=== PATIENT | male | born 1985 | race Caucasian/White ===

== ENCOUNTER 2024-10-23 17:28 | Emergency (ER) | payer BC ==
--- OUTSIDE RECORDS SUMMARY | 2024-10-23 17:32 | XMS REPORT | Continuity of Care Document ---
Author Name Unknown Address [address] [place] [id number] [place], [place] [address] Address [address] [place] [address]. [address] [place] [address] Care Team Providers Care Food Service Helper Name Role Phone Unavailable Unavailable Unavailable
[2024-10-23] MEDS ORDERED: ASPIRIN 81 MG CHEWABLE TABLET ONE (18:05)
[2024-10-23] MEDS ORDERED: ONDANSETRON 4 MG/2 ML VIAL ONE (18:06)
[2024-10-23] MEDS ORDERED: MORPHINE 4 MG/ML SYR ONE (18:07)
[2024-10-23] MEDS ORDERED: HEPARIN 5000 UNIT/ML 1 ML VIAL ONE (18:15)
[2024-10-23] MEDS ORDERED: TENECTEPLASE 50 MG/10 ML VIAL IV ONE (18:15)
[2024-10-23] MEDS ORDERED: CLOPIDOGREL 75 MG TABLET ONE (18:15)
[2024-10-23] MEDS ORDERED: HEPARIN/D5W 25,000 UNIT/500 ML BAG IV ONE (18:16)
[2024-10-23 18:23] LABS: Absolute Eosinophils 0.2 K/uL (0-0.5); Absolute Lymphocytes (CBC) 1.3 K/uL (0.7-4.9); Absolute Monocytes 0.6 K/uL (0.1-1.3); Absolute Neutrophil 7.6 K/uL (1.8-8.0); Basophils % 0.3 % (0-1.3); Eosinophils % 1.6 % (0-4.4); Hematocrit 43.9 % (39.6-49.0); Hemoglobin 15.3 g/dL (13.6-17.9); Lymphocytes % 13.8 % (15.3-44.8); MCHC 34.8 g/dL (32.0-36.0); MCV 92.1 fL (80-100); MPV 8.2 fL (7.6-11.3); Neutrophils % 78.3 % (41.7-73.7); Platelets 182 thou/uL (152-406); RBC Red Blood Cell Count 4.76 M/uL (4.33-5.43); Red Cell Distribution Width 13.2 % (12.1-15.2)
--- NOTE | 2024-10-23 18:30 | ER ---
Nurse's Notes [facility] Name: Arnaldo Serrano Age: 38 yrs Sex: Male : 1985 Arrival Date: 10/23/2024 Time: 17:28 Bed 23 Private MD: Diagnosis: ST elevation (STEMI) myocardial infarction of inferior wall-acute;Chest pain, unspecified;Tobacco abuse counseling;Tobacco use;Type 2 diabetes mellitus with hyperglycemia Presentation: 10/23 17:40 Chief complaint: EMS states: Pt was walking down some stairs, became light headed and jb4 hot. He started having chest pain that was gone upon EMS arrival. While en route to our Contract Dr. Pt became diaphoretic and heart rate dropped into the 40's and chest pain came back. Started an 18g in the LAC and gave approximately 100ml of NS. Laid the pt flat and he felt better. 17:40 Coronavirus screen: At this time, the client does not indicate any symptoms associated jb4 with coronavirus-19. Ebola Screen: No symptoms or risks identified at this time. Initial Sepsis Screen: Does the patient meet any 2 criteria? No. Patient's initial sepsis screen is negative. Does the patient have a suspected source of infection? No. Patient's initial sepsis screen is negative. Risk Assessment: Do you want to hurt yourself or someone else? Patient reports no desire to harm self or others. Onset of symptoms was October 23, 2024. Transition of care: patient was not received from another setting of care. 17:40 Method Of Arrival: EMS: [place] [id number] 17:40 Acuity: JAMIE 2 jb4 Historical: - Allergies: 17:53 Rofampin; jb4 - PMHx: 17:53 None; jb4 - PSHx: 17:53 abdominal; jb4 - Immunization history:: Adult Immunizations up to date. - Infectious Disease History:: Denies. - Social history:: Smoking status: Patient reports the use of cigarette tobacco products, denies chronic smoking, but will smoke occasionally. - Family history:: not pertinent. Screenin:40 [facility] ED Fall Risk Assessment (Adult) History of falling in the last 3 months, jb4 including since admission No falls in past 3 months (0 pts) Confusion or Disorientation No (0 pts) Intoxicated or Sedated No (0 pts) Impaired Gait No (0 pts) Mobility Assist Device Used No (0 pt) Altered Elimination No (0 pt) Score/Fall Risk Level 0 - 2 = Low Risk Oriented to surroundings, Maintained a safe environment. Abuse screen: Denies threats or abuse. Nutritional screening: No deficits noted. Tuberculosis screening: No symptoms or risk factors identified. Assessment: 18:12 Reassessment: Received verbal order for 4mg of zofran IV and 4mg of morphine IV x1 and jb4 300mg of plavix Patient denies pain at this time. 18:27 Reassessment: Administrative approval given by Daya Cao, patient accounts coordinator at [facility]. Accepting physician Aaron Landin. Pt to go to shipyard laborer at [facility]. 18:40 Reassessment: Pt gave verbal consent for to sign papers and for me to update jb4 family and friends at the bedside. 18:40 Reassessment: Report given to ISREAL Becerra. Vital Signs: 17:40 BP 140 / 87; Pulse 73; Resp 16; Temp 98.2(O); Pulse Ox 100% on R/A; Weight 81.65 kg jb4 (R); Height 5 ft. 7 in. (R); 18:23 BP 145 / 94; Pulse 64; Resp 20; Pulse Ox 100% on 2 lpm NC; Weight 95.6 kg (M); jb4 17:40 Body Mass Index 28.19 (95.60 kg, 170.18 cm) jb4 ED Course: 17:33 Patient arrived in ED. bd 17:41 Tim He, ISREAL is Primary Nurse. jb4 17:51 [facility] Pal[facility]-C [facility]. kb 17:51 Tom Beltran MD is Attending Physician. kb 17:53 Tom Beltran MD is Attending Physician. na 17:53 Triage completed. jb4 17:53 Arm band placed on right wrist. jb4 17:53 Patient has correct armband on for positive identification. Bed in low position. Call jb4 light in reach. Side rails up X 1. Provided Education on: plan of care. 18:09 CPK Sent. bc6 18:09 Basic Metabolic Panel Sent. bc6 18:09 CBC with Diff Sent. bc6 18:09 D-Dimer Sent. bc6 18:09 LFT's Sent. bc6 18:09 Magnesium Sent. 6 18:09 NT PRO-BNP Sent. 6 18:09 Troponin HS Sent. 6 18:09 Initial lab(s) drawn, by me, sent to lab. Inserted saline lock: 20 gauge in right bc6 antecubital area, using aseptic technique. Blood collected. Flushed with 10 mL NS. 18:27 XRAY Chest (1 view) In Process Unspecified. EDMS 18:30 Client placed on continuous cardiac and pulse oximetry monitoring. NIBP monitoring jb4 applied. quality assurance monitor final on. Pulse ox on. Pt placed on combo pads. 18:30 One-on-one care X 60 minutes. jb4 18:55 No provider procedures requiring assistance completed. Patient transferred, IV remains ss in place. Administered Medications: 18:03 Drug: NS 0.9% IV 1000 ml IV at 1000 ml once; to be given as a bolus over 60 minutes jb4 {Note: continued EMS bolus.} Route: IV; Rate: 1000 ml; Site: left antecubital; 18:45 Follow up: Response: No adverse reaction; IV Status: Completed infusion; IV Intake: jb4 900ml 18:12 Drug: Aspirin PO Chewable Tablet 324 mg PO once; 81 mg tablets x 4 Route: PO; jb4 18:58 Follow up: Response: No adverse reaction jb4 18:21 Drug: Clopidogrel PO 300 mg PO once Route: PO; jb4 18:59 Follow up: Response: No adverse reaction jb4 18:22 Drug: morphine IVP or IV 4 mg IVP once over 4 mins Route: IVP; Infused Over: 4 mins; jb4 Site: right antecubital; 18:58 Follow up: Response: No adverse reaction; Marked relief of symptoms jb4 18:22 Drug: Ondansetron IVP 4 mg IVP once; over 2 minutes Route: IVP; Site: right antecubital;jb4 18:58 Follow up: Response: No adverse reaction; Marked relief of symptoms jb4 18:30 Drug: Heparin ([place]-Bolus with thrombolytic) - HEParin IVP 60 units/kg IVP once; Max 4000 ap3 units {Co-Signature: jb4 (Tim He RN).} Route: IVP; Site: right antecubital; 18:58 Follow up: Response: No adverse reaction jb4 18:30 Drug: Heparin ([place] Drip) 12 units/kg/[place] - ([place] [address] units, D5W IV 500 ml) IV at ap3 calculated rate Per protocol; Max initial rate 1000 units/hr {Co-Signature: esequiel (Tim He RN).} Route: IV; Rate: calculated rate; Site: right antecubital; 18:58 Follow up: IV Status: Infusion continued upon transfer jb4 18:46 Drug: Tenecteplase IV (Administer 10 ml NS flush BEFORE and AFTER tenecteplase) 45 mg ap3 IV at per protocol once {Co-Signature: esequiel (Tim He RN).} {Note: dose changed due to standing scale weight.} Route: IV; Rate: per protocol; Site: left antecubital; 18:46 Follow up: Response: No adverse reaction; IV Status: Completed infusion jb4 18:57 Not Given (PT transferredd): ns 0.9% 1000 ml IV at 1000 ml once; to be given as a bolus jb4 over 60 minutes 18:58 Not Given (pt transferredd): mg IVP once; dilute with 10 mL 0.9% NaCl; jb4 give over 2 minutes Medication: 18:40 VIS not applicable for this client. jb4 Intake: 18:45 IV: 900ml; Total: 900ml. jb4 Outcome: 18:30 ER care complete, transfer ordered by . na 18:55 Transferred by helicopter to [facility], Transfer form completed. ss X-rays sent w/ patient. 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 jb4 X-rays sent w/ patient. 18:56 Condition: unchanged 18:56 Discharge instructions given to patient, family, friend, Instructed on the need for transfer, Demonstrated understanding of instructions, 18:56 Patient left the ED. ss Signatures: Dispatcher [employer] EDMS Olivia Palencia, DYE RANGE OPERATOR CLOTH-C DYE RANGE OPERATOR CLOTH-Thelma Arce Corey, MD MD cha Blanchard, [place], RN RN ss Tim He, RN RN jb4 Denisha Douglas RN RN ap3 Magaly Kenyon 6 Tim He RN jb4 Corrections: (The following items were deleted from the chart) 17:54 17:53 Allergies: No Known Allergies; [email or web address] jb4 18:20 18:09 THYROID STIMULAT HORMONE+C.LAB.BRZ drawn and sent. bc6 EDMS
--- NOTE | 2024-10-23 18:30 | EDPHYS ---
Physician Documentation [facility] Name: Arnaldo Serrano Age: 38 yrs Sex: Male : 1985 Arrival Date: 10/23/2024 Time: 17:28 Bed 23 Private MD: Tom Melton HPI: 10/23 18:19 This 38 yrs old Male presents to ER via EMS with complaints of chest pain , na syncope. 18:19 The patient or guardian reports chest pain that is located primarily in the substernal na area. Onset: just prior to arrival. The patient presents with dizziness, generalized weakness, lightheadedness. Onset: The symptoms/episode began/occurred just prior to arrival. Modifying factors: The symptoms are alleviated by nothing, the symptoms are aggravated by nothing. Associated signs and symptoms: Pertinent positives: palpitations. The pain does not radiate. Severity of symptoms: At their worst the symptoms were moderate in the emergency department the symptoms are unchanged. Associated signs and symptoms: Pertinent positives: diaphoresis, dizziness, shortness of breath, syncope. The chest pain is described as a heaviness, a pressure. Historical: - Allergies: 17:53 Rofampin; jb4 - PMHx: 17:53 None; jb4 - PSHx: 17:53 abdominal; jb4 - Immunization history:: Adult Immunizations up to date. - Infectious Disease History:: Denies. - Social history:: Smoking status: Patient reports the use of cigarette tobacco products, denies chronic smoking, but will smoke occasionally. - Family history:: not pertinent. ROS: 18:19 Constitutional: Negative for fever, chills, and weight loss, Eyes: Negative for injury, na pain, redness, and discharge, ENT: Negative for injury, pain, and discharge, Neck: Negative for injury, pain, and swelling, Respiratory: Negative for shortness of breath, cough, wheezing, and pleuritic chest pain, Abdomen/GI: Negative for abdominal pain, nausea, vomiting, diarrhea, and constipation, Back: Negative for injury and pain, : Negative for injury, bleeding, discharge, and swelling, MS/Extremity: Negative for injury and deformity, Skin: Negative for injury, rash, and discoloration, Neuro: Negative for headache, weakness, numbness, tingling, and seizure, Psych: Negative for depression, anxiety, suicide ideation, homicidal ideation, and hallucinations, Allergy/Immunology: Negative for hives, rash, and allergies, Endocrine: Negative for neck swelling, polydipsia, polyuria, polyphagia, and marked weight changes, Hematologic/Lymphatic: Negative for swollen nodes, abnormal bleeding, and unusual bruising, 18:19 Cardiovascular: Positive for chest pain, palpitations, Exam: 18:19 Constitutional: This is a well developed, well nourished patient who is awake, alert, na and in no acute distress. Head/Face: Normocephalic, atraumatic. Eyes: Pupils equal round and reactive to light, extra-ocular motions intact. Lids and lashes normal. Conjunctiva and sclera are non-icteric and not injected. Cornea within normal limits. Periorbital areas with no swelling, redness, or edema. ENT: Nares patent. No nasal discharge, no septal abnormalities noted. Tympanic membranes are normal and external auditory canals are clear. Oropharynx with no redness, swelling, or masses, exudates, or evidence of obstruction, uvula midline. Mucous membranes moist. Neck: Trachea midline, no thyromegaly or masses palpated, and no cervical lymphadenopathy. Supple, full range of motion without nuchal rigidity, or vertebral point tenderness. No Meningismus. Chest/axilla: Normal chest wall appearance and motion. Nontender with no deformity. No lesions are appreciated. Cardiovascular: Regular rate and rhythm with a normal S1 and S2. No gallops, murmurs, or rubs. Normal PMI, no JVD. No pulse deficits. Respiratory: Lungs have equal breath sounds bilaterally, clear to auscultation and percussion. No rales, rhonchi or wheezes noted. No increased work of breathing, no retractions or nasal flaring. Abdomen/GI: Soft, non-tender, with normal bowel sounds. No distension or tympany. No guarding or rebound. No evidence of tenderness throughout. Back: No spinal tenderness. No costovertebral tenderness. Full range of motion. Male : Normal genitalia with no discharge or lesions. Skin: Warm, dry with normal turgor. Normal color with no rashes, no lesions, and no evidence of cellulitis. MS/ Extremity: Pulses equal, no cyanosis. Neurovascular intact. Full, normal range of motion., bilateral aka Neuro: Awake and alert, GCS 15, oriented to person, place, time, and situation. Cranial nerves II-XII grossly intact. Motor strength 5/5 in all extremities. Sensory grossly intact. Cerebellar exam normal. Normal gait. Psych: Awake, alert, with orientation to person, place and time. Behavior, mood, and affect are within normal limits. 18:19 ECG was reviewed by the Attending Physician. Vital Signs: 17:40 BP 140 / 87; Pulse 73; Resp 16; Temp 98.2(O); Pulse Ox 100% on R/A; Weight 81.65 kg jb4 (R); Height 5 ft. 7 in. (R); 18:23 BP 145 / 94; Pulse 64; Resp 20; Pulse Ox 100% on 2 lpm NC; Weight 95.6 kg (M); jb4 17:40 Body Mass Index 28.19 (95.60 kg, 170.18 cm) jb4 MDM: 17:51 Medical Screening Exam initiated kb 17:53 Medical Screening Exam initiated na 18:23 Differential diagnosis: abnormal EKG, acute myocardial infarction, acute pericarditis, na anxiety, coronary artery disease chest wall pain, congestive heart failure cholecystitis, Cholelithiasis gastroesophageal reflux disease (GERD), hiatal hernia, myocarditis, pancreatitis, peptic ulcer disease, pericarditis, pleurisy, pneumonia, pulmonary embolus, stable angina, thoracic aortic disection, unstable angina. HEART Score: History: Highly Suspicious (2), ECG: Significant ST-deviation (2), Age: < or = 45 years (0), Risk Factors: > or = 3 Risk factors for atherosclerotic disease (2), [Hypercholesterolemia] [Hypertension] [DM] [Active Smoker] [+ Family HX] [Obesity] Troponin: < or = 1 x Normal Limit (0). Differential diagnosis: cardiac arrhythmia, CVA, generalized weakness, hypovolemia, idiopathic dizziness, near-syncope. The patient was given aspirin in the Emergency Department. Data reviewed: vital signs, nurses notes, lab test result(s), EKG, radiologic studies, plain films. Consideration of Admission/Observation Patient was admitted/placed on observation. Escalation of care including admission/observation considered. I considered the following discharge prescriptions or medication management in the emergency department Medications were administered in the Emergency Department. See MAR. Independent interpretation of the following test(s) in the Emergency Department EKG: See my EKG interpretation above. Test considered but Not performed: Ultrasound no 2 d echo. Historians other than the Patient: pt well informed. Care significantly affected by the following chronic conditions: Diabetes, Hypertension, Obesity, smoker. Counseling: I had a detailed discussion with the patient and/or guardian regarding the historical points, exam findings, and any diagnostic results supporting the discharge/admit diagnosis, the presence of at least one elevated blood pressure reading (>120/80) during this emergency department visit, lab results, radiology results, the need to transfer to another facility, for higher level of care, [facility] does not immediately have the required specialist. 10/23 17:51 Order name: Basic Metabolic Panel kb 10/23 17:51 Order name: CBC with Diff kb 10/23 17:51 Order name: D-Dimer kb 10/23 17:51 Order name: LFT's kb 10/23 17:51 Order name: Magnesium kb 10/23 17:51 Order name: NT PRO-BNP kb 10/23 17:51 Order name: Troponin HS kb 10/23 17:51 Order name: CPK kb 10/23 18:20 Order name: Thyroid Stimulating Hormone EDMS 10/23 17:51 Order name: XRAY Chest (1 view) kb 10/23 17:51 Order name: Cardiac monitoring kb 10/23 17:51 Order name: EKG - Nurse/Tech kb 10/23 17:51 Order name: IV Saline Lock; Complete Time: 18:03 kb 10/23 17:51 Order name: Labs collected and sent; Complete Time: 18:09 kb 10/23 17:51 Order name: O2 Per Protocol; Complete Time: 18:03 kb 10/23 17:51 Order name: O2 Sat Monitoring; Complete Time: 18:03 kb 10/23 18:14 Order name: NPO; Complete Time: 18:21 na 10/23 18:16 Order name: IV Saline Lock - Large Bore; Complete Time: 18:21 na EC:19 Rate is 75 beats/min. Rhythm is regular. QRS [place] is Normal. MN interval is normal. QRS na interval is normal. QT interval is normal. No Q waves. T waves are Normal. ST Segment is elevated in leads II, III, aVF. ST Segment is depressed in leads V1, V2. Clinical impression: Inferior VT - acute. Interpreted by me. Reviewed by me. Administered Medications: 18:03 Drug: NS 0.9% IV 1000 ml IV at 1000 ml once; to be given as a bolus over 60 minutes jb4 {Note: continued EMS bolus.} Route: IV; Rate: 1000 ml; Site: left antecubital; 18:45 Follow up: Response: No adverse reaction; IV Status: Completed infusion; IV Intake: jb4 900ml 18:12 Drug: Aspirin PO Chewable Tablet 324 mg PO once; 81 mg tablets x 4 Route: PO; jb4 18:58 Follow up: Response: No adverse reaction jb4 18:21 Drug: Clopidogrel PO 300 mg PO once Route: PO; jb4 18:59 Follow up: Response: No adverse reaction jb4 18:22 Drug: morphine IVP or IV 4 mg IVP once over 4 mins Route: IVP; Infused Over: 4 mins; jb4 Site: right antecubital; 18:58 Follow up: Response: No adverse reaction; Marked relief of symptoms jb4 18:22 Drug: Ondansetron IVP 4 mg IVP once; over 2 minutes Route: IVP; Site: right antecubital;jb4 18:58 Follow up: Response: No adverse reaction; Marked relief of symptoms jb4 18:30 Drug: Heparin ([place]-Bolus with thrombolytic) - HEParin IVP 60 units/kg IVP once; Max 4000 ap3 units {Co-Signature: esequiel (Tim He RN).} Route: IVP; Site: right antecubital; 18:58 Follow up: Response: No adverse reaction jb4 18:30 Drug: Heparin ([place] Drip) 12 units/kg/[place] - ([place] [address] units, D5W IV 500 ml) IV at ap3 calculated rate Per protocol; Max initial rate 1000 units/hr {Co-Signature: esequiel (Tim He RN).} Route: IV; Rate: calculated rate; Site: right antecubital; 18:58 Follow up: IV Status: Infusion continued upon transfer jb4 18:46 Drug: Tenecteplase IV (Administer 10 ml NS flush BEFORE and AFTER tenecteplase) 45 mg ap3 IV at per protocol once {Co-Signature: esequiel (Tim He RN).} {Note: dose changed due to standing scale weight.} Route: IV; Rate: per protocol; Site: left antecubital; 18:46 Follow up: Response: No adverse reaction; IV Status: Completed infusion jb4 18:57 Not Given (PT transferredd): ns 0.9% 1000 ml IV at 1000 ml once; to be given as a bolus jb4 over 60 minutes 18:58 Not Given (pt transferredd): [id number] mg IVP once; dilute with 10 mL 0.9% NaCl; jb4 give over 2 minutes Disposition: 18:29 Critical Care:. na Disposition Summary: 10/23/24 18:30 Transfer Ordered Notes: Transfer Location: [facility] na Reason: Higher level of care na Condition: Serious na Problem: new na Symptoms: are unchanged na Accepting Physician: to senior cytogenetics laboratory director, dr nolen(10/23/24 18:56) opal Diagnosis - ST elevation (STEMI) myocardial infarction of inferior wall - acute na - Chest pain, unspecified na - Tobacco abuse counseling na - Tobacco use na - Type 2 diabetes mellitus with hyperglycemia na Forms: - Medication Reconciliation Form na - SBAR form na Critical care time excluding procedures: 18:29 Critical care time: Bedside Care: 30 minutes, Consultation: 15 minutes, Family na Intervention: 5 minutes. Total time: 50 minutes Signatures: Dispatcher [employer] Olivia Haile, NURSE OB-C NURSE OB-Tom Wright MD MD cha Blanchard, Shelby, RN RN Tim Khan RN RN jb4 Denisha Douglas RN RN ap3 Tim He RN jb4 Corrections: (The following items were deleted from the chart) 17:54 17:53 Allergies: No Known Allergies; jb4 jb4 18:20 17:54 THYROID STIMULAT HORMONE+C.LAB.BRZ ordered. DANNY DELGADO 18:30 18:30 to senior cytogenetics laboratory director, dr tamanna monzon cha 18:56 18:30 to senior cytogenetics laboratory director, dr tamanna monzon
--- NOTE | 2024-10-23 18:48 | RAD REPORT ---
Procedure: Chest Single View HISTORY: Chest pain COMPARISON: 2012 FINDINGS: The lungs appear clear of acute infiltrate. No significant pleural effusion noted. The heart is normal size. IMPRESSION: No acute abnormality is displayed.
[2024-10-23 18:53] LABS: ALT/SGPT 273 U/L (16-61); AST/SGOT 165 U/L (15-37); Albumin 3.8 g/dL (3.4-5.0); Albumin/Globulin Ratio 1.1 (1.1-1.8); Alkaline Phosphatase 99 U/L (45-117); Anion Gap 10.3 mEq/L (5.0-15.0); BUN Blood Urea Nitrogen 21 mg/dL (7-18); Bicarbonate 28 mEq/L (21-32); Bilirubin Total 0.4 mg/dL (0.2-1.0); Creatine Phosphokinase 97 U/L (39-308); Globulin 3.5 g/dL (2.3-3.5); Glomerular Filtration Rate 113 ml/min (=/>90); Glucose Level 129 mg/dL (74-106); Magnesium 2.3 mg/dL (1.6-2.4); NT PRO-BNP 7 pg/mL (<125); Potassium 5.3 mEq/L (3.5-5.1); Protein, Total 7.3 g/dL (6.4-8.2); Sodium Level 137 mEq/L (136-145); Troponin High Sensitivity 17.3 pg/mL (<58.9)
[2024-10-23 18:58] LABS: Bilirubin Direct < 0.2 mg/dL (0-0.2); Bilirubin Indirect, Calculated 0.2 mg/dL (0.2-0.8)
[2024-10-23 20:24] VITALS: TEMP 98.2; O2SAT 100
[2024-10-23 20:25] VITALS: BP 145/94
--- NOTE | 2024-10-24 11:58 | EKG ---
Test Date: 2024-10-23 Test Time: 17:58:31 Gyroscopic Engineering Technician: JUJU MEASUREMENT RESULTS: Intervals: Rate: 75 CA: 188 QRSD: 88 QT: 398 QTc: 444 [place]: P: 67 CA: 188 QRS: 57 T: 88 INTERPRETIVE STATEMENTS: Normal sinus rhythm ST elevation, consider inferior injury or acute infarct ACUTE FL / STEMI Consider right ventricular involvement in acute inferior infarct Abnormal ECG No previous ECG available for comparison Electronically Signed On 10-24-24 11:56:59 CDT by Madhu Pritchard
== END 2024-10-23 18:56 | disposition short-term general hospital (02) ==
LOC: ER 17:28
DX: I21.19 ST elevation (STEMI) myocardial infarction involving other coronary artery of inferior wall (principal); E11.65 Type 2 diabetes mellitus with hyperglycemia; Z72.0 Tobacco use; Z71.6 Tobacco abuse counseling
CPT/HCPCS: 92977; 93005; 85025; 80048; 36415; 83735; 82550; 85379; 80076; 84443; 84484; 83880; 71045; 99285; J1644; J3101; J2405

== ENCOUNTER 2025-04-06 10:17 | Emergency (ER) | payer BC ==
[2025-04-06] MEDS ORDERED: NA CHLORIDE 0.9% 1,000 ML ONE (10:42)
[2025-04-06] MEDS ORDERED: ONDANSETRON 4 MG/2 ML VIAL ONE (10:42)
[2025-04-06] MEDS ORDERED: MORPHINE 4 MG/ML SYR ONE (10:42)
[2025-04-06] MEDS ORDERED: FAMOTIDINE 20 MG/2 ML VIAL IV ONE (10:42)
[2025-04-06 10:53] LABS: Absolute Lymphocytes (CBC) 1.8 K/uL (0.7-4.9); Hematocrit 45.3 % (39.6-49.0); Hemoglobin 15.4 g/dL (13.6-17.9); MCH 30.8 pg (27.0-35.0); MCHC 34.1 g/dL (32.0-36.0); MCV 90.4 fL (80-100); MPV 7.7 fL (7.6-11.3); Nucleated RBC Absolute Count 0.0 (0-0); Nucleated Red Blood Cells % 0.0 % (0-0); RBC Red Blood Cell Count 5.01 M/uL (4.33-5.43); White Blood Count 5.50 thou/uL (4.3-10.9)
[2025-04-06 11:15] LABS: ALT/SGPT 43.0 U/L (16-61); AST/SGOT 20.0 U/L (15-37); Albumin 4.1 g/dL (3.4-5.0); Albumin/Globulin Ratio 1.1 (1.1-1.8); Alkaline Phosphatase 82.0 U/L (45-117); Anion Gap 10.9 mEq/L (5.0-15.0); BUN Blood Urea Nitrogen 14.0 mg/dL (7-18); Globulin 3.7 g/dL (2.3-3.5); Glucose Level 131.0 mg/dL (74-106); Lipase 48.0 U/L (13-75); Potassium 3.9 mEq/L (3.5-5.1); Troponin High Sensitivity 3.5 pg/mL (<58.9)
--- NOTE | 2025-04-06 11:17 | RAD REPORT ---
EXAM: Right upper quadrant ultrasound. CLINICAL HISTORY: RUQ abd pain COMPARISON: None. FINDINGS: Gallbladder: Suspected gallbladder stone in the region of the neck. Bile ducts: No intrahepatic or extrahepatic biliary dilatation. Common bile duct measures 3 mm. Limited imaging of the liver shows no concerning finding. IMPRESSION: Suspected stone in the gallbladder neck.
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
[2025-04-06 12:22] VITALS: TEMP 98.1
[2025-04-06 12:27] VITALS: BP 146/96; O2SAT 100
== END 2025-04-06 12:17 | disposition home or self-care (01) ==
LOC: ER 10:17
DX: K80.80 Other cholelithiasis without obstruction (principal); Z88.8 Allergy status to other drugs, medicaments and biological substances
CPT/HCPCS: 96361; 93005; 85025; 36415; 84484; 83690; 80053; 76705; 96375; 96374; 99284; J2405; J1790; J7030